=== PATIENT | female | born 1960 | race Caucasian/White ===

== ENCOUNTER 2019-10-16 23:02 | Emergency (ER) | payer BC ==
[~2019-10-16] VITALS: Ht 170.2 cm; Wt 52.3 kg
--- NOTE | 2019-10-16 23:15 | NUR ---
[facility] GAVE DAUGHTER PHONE NUMBER [phone] MYRA
--- NOTE | 2019-10-16 23:18 | NUR ---
PT REPORTED TO DR COTTER THAT HE HAS HAD FEVER AND BODY ACHES , AFTER DENING TO NURSING STAFF X4 ALL THOSE SYMPTOMS. FLU SWAB OBTAINED AND SENT TO LAB
[2019-10-16] MEDS ORDERED: normal saline 1000ML IV soln IVB ONE (23:20)
--- NOTE | 2019-10-16 23:24 | NUR ---
DAUGHTER IN LOBBY , AWAITING TO SEE PT . PT HAVING CHEST X RAY AT THIS TIME
[2019-10-16 23:25] LABS: BASOPHILS % (AUTO) 0.7 % (0-1); EOSINOPHILS % (AUTO) 0.1 % (0-6); HEMATOCRIT 35.1 % (35.0-45.0); HEMOGLOBIN 12.4 g/dl (12.0-16.0); LYMPHOCYTES # (AUTO) 1.5 X10'3 (1.1-4.8); LYMPHOCYTES % (AUTO) 32.7 % (21-51); MEAN CORPUSCULAR HEMOGLOBIN 33.1 PG (27.0-31.0); MEAN CORPUSCULAR HGB CONC 35.4 g/dL (33.0-36.5); MEAN CORPUSCULAR VOLUME 93.5 FL (78-98); MEAN PLATELET VOLUME 8.4 FL (7.4-10.4); MONOCYTES # (AUTO) 0.4 X10'3 (0-0.9); MONOCYTES % (AUTO) 8.8 % (2-12); NEUTROPHILS # (AUTO) 2.7 X10'3 (1.8-7.7); NEUTROPHILS % (AUTO) 57.7 % (42-75); PLATELET COUNT 147 X10'3 (140-440); RED BLOOD COUNT 3.76 X10'6 (4.20-5.60); RED CELL DISTRIBUTION WIDTH 12.5 % (11.5-14.5); WHITE BLOOD COUNT 4.6 X10'3 (4.5-11.0)
--- NOTE | 2019-10-16 23:28 | NUR ---
DROPLET PRECAUTIONS INTIATED
[2019-10-16 23:41] LABS: ALANINE AMINOTRANSFERASE 23 U/L (12-78); ALBUMIN 3.1 G/DL (3.4-5.0); ALKALINE PHOSPHATASE 31 IU/L (46-116); ANION GAP 6 (8-16); ASPARTATE AMINO TRANSFERASE 27 U/L (10-37); BILIRUBIN,TOTAL 0.3 MG/DL (0.1-1.0); BLOOD UREA NITROGEN 5 MG/DL (7-18); BUN/CREATININE RATIO 6.7 (6.6-38.0); CALCIUM 7.7 MG/DL (8.5-10.1); CHLORIDE 101 MMOL/L (99-107); CREATININE 0.75 MG/DL (0.40-0.90); GLUCOSE 106 MG/DL (70-104); MAGNESIUM 1.6 MG/DL (1.5-2.4); PARTIAL THROMBOPLASTIN TIME 30 SECONDS (22-32); POTASSIUM 3.3 MMOL/L (3.5-5.1); SODIUM 135 MMOL/L (135-145); TOTAL CARBON DIOXIDE 27.6 MMOL/L (24-32); TOTAL PROTEIN 6.2 G/DL (6.4-8.2); eGFR 79 ML/MIN
[2019-10-17] MEDS ORDERED: normal saline 1000ML IV soln IVB ONE (00:20)
--- NOTE | 2019-10-17 00:30 | NUR ---
LAB CALLED, INFLUENZA B POSITIVE . DR COTTER AWARE
[2019-10-17 01:26] VITALS: BP 119/61
== END 2019-10-17 01:10 | disposition home or self-care (01) ==
LOC: ER 23:04
DX: J10.1 Influenza due to other identified influenza virus with other respiratory manifestations (principal); E86.0 Dehydration; R53.1 Weakness; R11.2 Nausea with vomiting, unspecified; Z88.0 Allergy status to penicillin
CPT/HCPCS: 36415; 71045; 80053; 83735; 84145; 85025; 85610; 85730; 87502; 87503; 93005; 96360; 99284; J7030